=== PATIENT | female | born 2000 | race African-American/Black ===

== ENCOUNTER → 2024-10-26 | Outpatient (REF) | payer OTHER ==
[~2024-10-26] MED LIST: ALPR1TAB3 PO; ALPR2TAB3 PO; CYCL-707 PO; HYDR-3715 PO; METH-1387 PO; PROP20TA72 PO; ZOLP10TA2 PO
[2024-10-26 19:27] LABS: CALCIUM LEVEL 9.3 MG/DL (8.5-10.1); CARBON DIOXIDE LEVEL 25 MMOL/L (20-31); CHLORIDE LEVEL 110 MMOL/L (98-107); CHOLESTEROL LEVEL 164 MG/DL (<200); CHOLESTEROL RISK RATIO 3.24 (<5); CREATININE FOR GFR 0.85 MG/DL (0.55-1.30); GLOMERULAR FILTRATION RATE > 90.0 (>60); LDL CHOLESTEROL 100.4 MG/DL (<100); NON-HDL-C 113.4 MG/DL; POTASSIUM SERUM 4.0 MMOL/L (3.5-5.1); SODIUM LEVEL 142 MMOL/L (136-145); TRIGLYCERIDES LEVEL 65 MG/DL (<150)
[2024-10-26 19:30] LABS: FREE T4 0.84 NG/DL (0.89-1.76)
== END ==
LOC: M LAB REF 18:11
PROVIDERS: ATTEND Nurse Practitioner Family
DX: R14.0 Abdominal distension (gaseous) (principal); Z13.1 Encounter for screening for diabetes mellitus; Z13.220 Encounter for screening for lipoid disorders; E07.9 Disorder of thyroid, unspecified

== ENCOUNTER 2024-12-08 17:34 | Emergency (ER) | payer OTHER ==
[~2024-12-08] VITALS: Ht 170.2 cm; Wt 65.9 kg
[2024-12-08] MEDS: KETOROLAC 30 MG/ML 1 ML VIAL IV ONE (19:24)
[2024-12-08 19:42] LABS: BASO # 0.0 10^3/uL (0.0-0.2); BASO % 0.6 % (0.0-1.0); EOS # 0.1 10^3/uL (0.0-0.5); EOS % 1.4 % (0.0-3.0); LYMPH # 2.0 10^3/uL (1.5-5.0); LYMPH % 39.3 % (24.0-44.0); MONO # 0.5 10^3/uL (0.0-0.8); MONO % 8.9 % (2.0-8.0); NEUTROPHILS # 2.5 10^3/uL (1.5-8.5); NEUTROPHILS % 49.6 % (36.0-66.0); PLATELET COUNT, AUTOMATED 260 10^3/uL (150-450)
[2024-12-08 19:58] LABS: KETONE, URINE AUTO RFX NEGATIVE (NEGATIVE); LEUKOCYTE ESTERASE UR AUTO RFX 1+ (NEGATIVE); NITRITE, URINE AUTO RFX NEGATIVE (NEGATIVE); RBC, URINE AUTO RFX 5 /HPF (0-3); SQUAM EPITHELIAL CELL UR AURFX 21 /HPF (0-6); WBC, URINE AUTO RFX 11 /HPF (0-3)
[2024-12-08 20:18] LABS: HCG, SERUM QUALITATIVE NEGATIVE (NEGATIVE)
[2024-12-08 20:20] LABS: ALT/SGPT 13 U/L (7.0-40); AST/SGOT 21 U/L (<34); CALCIUM LEVEL 9.6 MG/DL (8.5-10.1); CARBON DIOXIDE LEVEL 22 MMOL/L (20-31); CHLORIDE LEVEL 110 MMOL/L (98-107); CREATININE FOR GFR 1.04 MG/DL (0.55-1.30); GLOMERULAR FILTRATION RATE 77.5 (>60); POTASSIUM SERUM 4.3 MMOL/L (3.5-5.1); SODIUM LEVEL 142 MMOL/L (136-145)
[2024-12-08] MEDS: MORPHINE 2 MG/ML 1 ML VIAL IV ONE (20:39)
[2024-12-08 21:49] VITALS: BP 125/70; TEMP 97.3; O2SAT 100
== END 2024-12-08 22:04 | disposition home or self-care (01) ==
LOC: M ED 17:34 → EDBD 17:34 → M ED 22:04
DX: R10.32 Left lower quadrant pain (principal); E28.2 Polycystic ovarian syndrome; Z79.899 Other long term (current) drug therapy
CPT/HCPCS: 74176; 76830; 76856; 80048; 80076; 81001; 84703; 85025; 87086; 93976; 96374; 96375; 99284; J1885; J2060

== ENCOUNTER 2025-03-09 14:00 | Emergency (ER) | payer OTHER ==
[~2025-03-09] VITALS: Ht 170.2 cm; Wt 66.8 kg
[~2025-03-09 14:00] MED LIST changes: +ZOLP10TA11 PO; -ZOLP10TA2 PO
[2025-03-09] MEDS: NS (Normal Saline) 0.9% 1,000 ML IV ONE (14:54)
[2025-03-09] MEDS: ONDANSETRON 4MG/2ML VIAL IV ONE (14:54)
[2025-03-09] MEDS: KETOROLAC 30 MG/ML 1 ML VIAL IV ONE (14:54)
[2025-03-09 15:00] LABS: BASO # 0.0 10^3/uL (0.0-0.2); BASO % 0.2 % (0.0-1.0); EOS # 0.0 10^3/uL (0.0-0.5); EOS % 0.0 % (0.0-3.0); LYMPH # 0.7 10^3/uL (1.5-5.0); LYMPH % 7.0 % (24.0-44.0); MONO # 0.1 10^3/uL (0.0-0.8); MONO % 0.5 % (2.0-8.0); NEUTROPHILS # 8.9 10^3/uL (1.5-8.5); NEUTROPHILS % 91.9 % (36.0-66.0); PLATELET COUNT, AUTOMATED 336 10^3/uL (150-450)
[2025-03-09 15:01] LABS: APPEARANCE, URINE CLEAR (CLEAR); BACTERIA, URINE AUTO NEGATIVE (NEGATIVE); BILIRUBIN, URINE AUTO NEGATIVE (NEGATIVE); BLOOD, URINE BLOOD 3+ (NEGATIVE); GLUCOSE, URINE (UA) AUTO NEGATIVE (NEGATIVE); KETONE, URINE AUTO 1+ mg/dL (NEGATIVE); LEUKOCYTE ESTERASE, URINE AUTO NEGATIVE (NEGATIVE); MUCUS, URINE SMALL (NEGATIVE); NITRITE, URINE AUTO NEGATIVE (NEGATIVE); PROTEIN, URINE AUTO 1+ mg/dL (NEGATIVE); RBC, URINE AUTO 97 /HPF (0-3); SPECIFIC GRAVITY URINE AUTO 1.029 (1.002-1.035); SQUAMOUS EPITHELIAL CELL UR AU 1 /HPF (0-6); UROBILINOGEN, URINE AUTO 2.0 mg/dL (0.0-2.0); WBC, URINE AUTO 2 /HPF (0-3)
[2025-03-09 15:26] LABS: ALT/SGPT 16 U/L (7.0-40); AST/SGOT 21 U/L (<34)
[2025-03-09] MEDS: HYDROMORPHONE HCL 0.5 MG/0.5 ML SYRINGE IV PRN (15:27)
[2025-03-09 15:32] LABS: HCG, SERUM QUALITATIVE NEGATIVE (NEGATIVE)
[2025-03-09] MEDS: SIMETHICONE 80MG CHEW TAB PO PRN (18:32)
[2025-03-09] MEDS ORDERED: ISOVUE-370 76% 100 ML VIAL As Ordered ONE (19:18)
[2025-03-09] MEDS: PERCOCET 5MG/325MG TAB PO ONE (21:16)
[2025-03-09 22:33] VITALS: BP 135/84; TEMP 97.5; O2SAT 100
== END 2025-03-09 22:30 | disposition home or self-care (01) ==
LOC: M ED 14:00
DX: R10.84 Generalized abdominal pain (principal); F90.9 Attention-deficit hyperactivity disorder, unspecified type; E28.2 Polycystic ovarian syndrome; F17.200 Nicotine dependence, unspecified, uncomplicated; Z79.899 Other long term (current) drug therapy
CPT/HCPCS: 71045; 74177; 80047; 80076; 81001; 83605; 84703; 85025; 96374; 96375; 96376; 99284; J1171; J1885; J2405; Q9967